=== PATIENT | male | born 1960 | race Caucasian/White ===

== ENCOUNTER 2016-12-08 06:52 | Day surgery (SDC) | payer BC ==
[~2016-12-08] VITALS: Ht 170.2 cm; Wt 68.3 kg
[2016-12-08 08:55] VITALS: Ht 170.2 cm; Wt 68.3 kg
[2016-12-08 09:26] VITALS: BP 143/85; PULSE 57; RESP 16
[2016-12-08 10:43] VITALS: BP 175/98; RESP 20
--- NOTE | 2016-12-08 14:56 | GILP ---
DATE OF PROCEDURE: NAME OF PROCEDURES: 1. Esophagogastroduodenoscopy and biopsy. 2. Colonoscopy and biopsy. SURGEON: Jasson Calix MD PREOPERATIVE DIAGNOSES: 1. Gastroesophageal reflux disease. 2. Screening colonoscopy. POSTOPERATIVE DIAGNOSES: 1. Hiatal hernia. 2. Reflux esophagitis with erosions at the lower end. 3. Gastritis with erosions. 4. Gastric mucosal biopsies were taken for Helicobacter pylori test. 5. Colonoscopy all the way to the cecum. 6. Poor prep, making the exam suboptimal. 7. Right colon polyp was removed using the biopsy forceps. 8. Internal hemorrhoids. INDICATION FOR THE PROCEDURE: Mr. Ann Canada is a 56-year-old male patient who had chronic hea rtburn, not responding to therapy. The patient also needed screening colonoscopy. The procedures and possible complications were well explained to the patient. The patient understoo d and consented to the procedure. DESCRIPTION OF PROCEDURE: Under the influence of anesthesia, the gastroscope was carefully introduc ed into the esophagus and under direct vision it was advanced to the stomach and through the pylorus , into the duodenal bulb and descending duodenum. FINDINGS: ESOPHAGUS: The patient had a hiatal hernia, with reflux esophagitis and erosions at the lower end. STOMACH: The patient had gastritis. Gastric mucosal biopsies were taken for H. pylori test. DUODENUM: Normal. The colonoscope was carefully introduced in the rectum and under direct vision it was advanced all t he way to the cecum. FINDINGS: The patient had a poor prep, making the exam suboptimal. The patient had a small right c olon polyp and it was removed using the biopsy forceps. He had internal hemorrhoids. He tolerated the procedures very well and there was no complication from the procedures. At the end of the procedures, he was awake with stable vital signs and he was discharged home to the care of h is family. IMPRESSION: Please see postoperative diagnoses. PLAN: 1. Nexium 24 HR p.o. q.a.m. 2. Await H. pylori test report. 3. Await histopathology report on the colon polyp. 4. Because of the poor prep and suboptimal nature of the examination, would recommend a repeat colo noscopy with better preparation in 2 years. Dictated By: JASSON SANCHEZ/BARBY Conf#: [id number] DID#: [id number]
== END 2016-12-08 12:27 | disposition home or self-care (01) ==
LOC: GIL 06:52
PROVIDERS: ATTEND Internal Medicine Gastroenterology
DX: Z12.11 Encounter for screening for malignant neoplasm of colon (principal); K44.9 Diaphragmatic hernia without obstruction or gangrene; K21.0 Gastro-esophageal reflux disease with esophagitis; K29.60 Other gastritis without bleeding; K63.5 Polyp of colon; K64.8 Other hemorrhoids
CPT/HCPCS: 43239; 45380; 87081; 88305; Z7610

== ENCOUNTER 2019-03-28 13:53 | Emergency (ER) | payer BC ==
[~2019-03-28] VITALS: Ht 167.6 cm; Wt 75.3 kg
[2019-03-28 14:01] VITALS: Ht 167.6 cm; Wt 75.3 kg
[2019-03-28] MEDS ORDERED: HYDROCODONE/APAP (5/325) TAB PO ONE (14:30)
[2019-03-28] MEDS ORDERED: DIPHTH/TET/ACEL PERTUSS (ADULT) 0.5 ML VIAL IM* ONE (14:30)
--- NOTE | 2019-03-28 14:39 | ERD ---
ER Documentation Chief Complaint Chief Complaint FINGER LACERATION, 4 NAILS GOT RIPPED OFF HPI 58-year-old male presents with lacerations to his left index, middle and ring finger as well as his pinky finger while trying to fix a fan today. Tetanus is not up-to-date. Denies restricted range of motion or weakness. Denies additional injury other than his fingertips on his left hand. He is right-hand dominant. ROS All systems reviewed and are negative except as per history of present illness. Medications Home Meds Active Scripts Hydrocodone/Acetaminophen ([place] 5-325 Tablet) 1 Each Tablet, 1 TAB PO Q6H PRN for PAIN, #7 TAB Prov:KYLIE RUSSELL MD 03/28/19 Cephalexin* (Keflex*) 500 Mg Capsule, 500 MG PO QID for 7 Days, CAP Prov:KYLIE RUSSELL MD 03/28/19 Reported Medications [none] No Conflict Check 12/08/16 Allergies Allergies: Coded Allergies: No Known Allergy (Unverified , 12/08/16) PMhx/Soc History of Surgery: Yes (appendectomy ) Anesthesia Reaction: No Hx Neurological Disorder: No Hx Respiratory Disorders: No Hx Cardiac Disorders: No Hx Psychiatric Problems: No Hx Miscellaneous Medical Probl: No Hx Alcohol Use: No Hx Substance Use: No Hx Tobacco Use: Yes (1 pack a day) Smoking Status: Never smoker FmHx Family History: No diabetes, No coronary disease, No other Physical Exam Vitals Vital Signs Date Temp Pulse Resp B/P (MAP) Pulse Ox O2 O2 Flow FiO2 Time Delivery Rate 03/28/19 98.2 79 18 142/84 95 Room Air 15:48 (103) 03/28/19 87 19 170/87 97 14:01 (114) Physical Exam Const: No acute distress Head: Atraumatic Eyes: Normal Conjunctiva ENT: Normal External Ears, Nose and Mouth. Neck: Full range of motion. No meningismus. Resp: Clear to auscultation bilaterally Cardio: Regular rate and rhythm, no murmurs Abd: Soft, non tender, non distended. Normal bowel sounds Skin: No petechiae or rashes Back: No midline or flank tenderness Ext: No cyanosis, or edema. Irregular stellate laceration to the left index finger at the tip involving the nail. Left middle finger shows approximately 1 cm laceration through the tip through the lateral aspect of the nail. Left ringer finger shows a similar 1 cm laceration of the tip through the nail. There is a superficial laceration to the tip of the nail of the left pinky finger. No restricted range of motion or deficits are appreciated tendon involvement. No involvement of the PIP or DIP joints. Neur: Awake and alert Psych: Normal Mood and Affect Results 24 hrs Current Medications Medications Dose Sig/Sindy Start Time Status Last (Trade) Ordered Route PRN Stop Time Admin Dose Reason Admin Diphtheria/ 0.5 ml ONCE ONCE 03/28/19 DC 03/28/19 Tetanus/Acell IM* 14:30 14:43 Pertussis 03/28/19 14:31 (Adacel) 1 tab ONCE ONCE 03/28/19 DC 03/28/19 Acetaminophen PO 14:30 14:42 / 03/28/19 14:31 Hydrocodone Bitart ([place] (5/325)) Procedures/MDM Wound was copiously irrigated with saline and Betadine. Patient given [place] for pain. Procedure note-after Betadine prep approximately 4 cc of lidocaine is used to perform digital block on the index, middle finger and ring finger. Left index finger was sutured in interrupted fashion with 5 4-0 nylon sutures. Left middle finger was reapproximated at the tip with two 4-0 nylon and left ring finger was reapproximated with four 4-0 nylon sutures. Avulsions of the nail were reapproximated with sutures. Patient tolerated procedure well and wound was dressed. Patient counseled that may have deformities of the nail due to possible nail bed injury. X-ray left hand 3V interpreted by me: Scaphoid: Normal Bones: No fracture Joints: No dislocation Foreign body: None impression-normal left hand x-ray Wounds were cleansed and dressed patient was placed in the left middle and ring finger metal splint was neurovascular intact after splint. Patient was discharged home with recommendations for 2-day wound check in 7 days suture removal. He was given Keflex and a short course of [place] for acute pain less than 5-day supply. Cures review negative. There are no signs of tendon Laceration, ischemia, deficits or current infection. The patient was stable with no new complaints during the ER course. Clinically, there is no current evidence to suggest meningitis, sepsis, acute abdomen, pneumonia, stroke, acute coronary syndrome, pulmonary embolism, aortic dissection or any other emergent condition appearing to require further evaluation or hospitalization. Patient counseled regarding my diagnostic impression and care plan. Prior to discharge all questions answered. Pt agrees with treatment plan and understands strict return precautions. Pt is instructed to follow up with primary care provider within 24-48 hours. Precautionary instructions provided including instructions to return to the ER if not improving or for any worsening or changing symptoms or concerns. Disclaimer: Inadvertent spelling and grammatical errors are likely due to EHR/dictation software use and do not reflect on the overall quality of patient care. Also, please note that the electronic time recorded on this note does not necessarily reflect the actual time of the patient encounter. Departure Diagnosis: Primary Impression: Laceration Condition: Stable KYLIE RUSSELL MD March 28, 2019 14:39
[2019-03-28] MEDS ORDERED: HYDR-4011 PO (15:10)
[2019-03-28] MEDS ORDERED: CEPH-443 PO (15:10)
[2019-03-28 15:48] VITALS: BP 142/84; PULSE 79; RESP 18
== END 2019-03-28 15:53 | disposition home or self-care (01) ==
LOC: FTE 13:53
DX: S61.311A Laceration without foreign body of left index finger with damage to nail, initial encounter (principal); S61.313A Laceration without foreign body of left middle finger with damage to nail, initial encounter; S61.315A Laceration without foreign body of left ring finger with damage to nail, initial encounter; S61.317A Laceration without foreign body of left little finger with damage to nail, initial encounter; W29.2XXA Contact with other powered household machinery, initial encounter; Y92.9 Unspecified place or not applicable; Z23 Encounter for immunization; Z87.891 Personal history of nicotine dependence
CPT/HCPCS: 12001; 73130; 90715; Z7610; 90471

== ENCOUNTER 2019-03-30 11:32 | Emergency (ER) | payer BC ==
[~2019-03-30] VITALS: Wt 78.0 kg
[~2019-03-30 11:32] MED LIST: CEPH-443 PO; HYDR-4011 PO
[2019-03-30 11:42] VITALS: BP 157/94; PULSE 71; RESP 18
--- NOTE | 2019-03-30 13:12 | ERD ---
ER Documentation Chief Complaint Chief Complaint left hand wound check HPI Patient is 58-year-old male presenting for wound check to left hand. For an injury that happened on March 28, patient was seen in the ER and received sutures. Patient states he is in no new pain and still has full function of his hand. Patient was just advised that he needed to follow-up in 2 days for wound check. Patient denies any fever chills body ache or worsening pain in the extremity. Patient states has been on antibiotics and has been compliant with his medication. ROS All systems reviewed and are negative except as per history of present illness. Medications Home Meds Active Scripts Hydrocodone/Acetaminophen ([place] 5-325 Tablet) 1 Each Tablet, 1 TAB PO Q6H PRN for PAIN, #7 TAB Prov:KYLIE RUSSELL MD 03/28/19 Cephalexin* (Keflex*) 500 Mg Capsule, 500 MG PO QID for 7 Days, CAP Prov:KYLIE RUSSELL MD 03/28/19 Reported Medications [none] No Conflict Check 12/08/16 Allergies Allergies: Coded Allergies: No Known Allergy (Unverified , 12/08/16) PMhx/Soc Medical and Surgical Hx: pt denies Medical Hx, pt denies Surgical Hx History of Surgery: Yes (appendectomy ) Anesthesia Reaction: No Hx Neurological Disorder: No Hx Respiratory Disorders: No Hx Cardiac Disorders: No Hx Psychiatric Problems: No Hx Miscellaneous Medical Probl: No Hx Alcohol Use: No Hx Substance Use: No Hx Tobacco Use: Yes (1 pack a day) Smoking Status: Never smoker FmHx Family History: No diabetes, No coronary disease, No other Physical Exam Vitals Vital Signs Date Temp Pulse Resp B/P (MAP) Pulse Ox O2 O2 Flow FiO2 Time Delivery Rate 03/30/19 97.6 71 18 157/94 99 11:42 (115) Physical Exam GENERAL: The patient is well-appearing, well-nourished, in no acute distress EXTREMITIES: Patient's sutures are still intact, no signs of infection, patient has good pulse motor sensation in his left hand. Pulses are equal bilateral There is no peripheral clubbing, cyanosis or edema. Patient's range of motion is nonrestrictive but is painful for the patient to move his fingers. Digits 1 through 5 are palpated with no pain. Patient pain is only at his fingertips. Grossly neurovascularly intact. SKIN: There is no apparent rash or petechiae. The skin is warm and dry. Procedures/MDM ED course: Wound inspected Patient's left hand was cleaned and rewrapped. Patient was advised he needs to follow-up for suture removal. Patient was advised that the date of suture removal is 5 to 7 days from the day they were placed in The patient was stable throughout the ED course. Medical decision making: Patient 58-year-old male presenting for wound check. Patient was seen in the ED on March 28, 2019 for an injury to the left hand. Patient had suture placement and digits 2 through 5 on the left hand. The sutures are still intact, there is no signs of active bleeds, no signs of infection patient has good pulse motor and sensation. There was no neurovascular deficits noted on examination. Patient states he has been compliant with his antibiotics and pain medication. Patient states the symptoms have been improving since his initial visit. At this time I have low suspicion for compartment syndrome, fracture, neurovascular injury, or infection. The patient was advised that he needs to follow-up in 5 to 7 days from the initial suture placement to have them removed. Patient was educated on wound care and was advised to come back if he experiences any worsening of pain or he is unable to move his hand or fingers. Patient was reminded the importance of taking his antibiotics. At this time the wounds are healing and the sutures are still in place. The patient's hands were re- bandaged and neurovascular exam was readministered the patient had no deficits. Patient is in agreement sent to the treatment plan and plans to follow-up for suture removals. Patient understands that if symptoms worsen he will return to the ER. Patient's questions were answered upon discharge no medications were prescribed because the patient still has medications for pain and is still taking his antibiotics. Prescription for home: Patient was advised to continue his hydrocodone and Keflex Discharge: At this time, patient is stable for discharge and outpatient management. I have instructed the patient to follow-up with his\her primary care physician in 1 to 2 days. I have discussed with the patient the possibility of needing to see a specialist for further work-up and imaging studies if symptoms persist. I have instructed the patient to promptly return to the ER for any new or worsening symptoms including increased pain, fever, nausea, vomiting, weakness or LOC. The patient and\or family expressed understanding of and agreement with this plan. All questions were answered. Home care instructions were provided. Disclaimer: Inadvertent spelling and grammatical errors are likely due to EHR\dictation software use and do not reflect on the overall quality of patient care. Also, please note that the electronic time recorded on the note does not necessarily reflect the actual time of the patient encounter. Departure Diagnosis: Primary Impression: Encounter for wound re-check Condition: JAYLA Guerra PA-C Mar 30, 2019 13:12
== END 2019-03-30 13:40 | disposition home or self-care (01) ==
LOC: FTE 11:32
DX: Z48.01 Encounter for change or removal of surgical wound dressing (principal); F17.210 Nicotine dependence, cigarettes, uncomplicated
CPT/HCPCS: 99281

== ENCOUNTER 2019-04-04 08:57 | Emergency (ER) | payer BC ==
[~2019-04-04] VITALS: Ht 167.6 cm; Wt 76.5 kg
[2019-04-04 09:00] VITALS: BP 163/90; PULSE 82; RESP 16; Ht 167.6 cm; Wt 76.5 kg
[2019-04-04] MEDS ORDERED: IBUPROFEN 800 MG TAB PO ONE (10:00)
--- NOTE | 2019-04-04 10:18 | ERD ---
ER Documentation Chief Complaint Chief Complaint pt is bib self for suture removal to left hand HPI 58-year-old male presenting with lacerations to the left second third and fourth distal digits. Patient cut himself 1 week ago in a fan. Patient has some mild pain. [id number]. He has normal range of motion of all his digits. He is up-to-date on his tetanus shot. Denies other medical problems. NKDA. Surgical history denies. Social history denies ROS All systems reviewed and are negative except as per history of present illness. Medications Home Meds Active Scripts Hydrocodone/Acetaminophen ([place] 5-325 Tablet) 1 Each Tablet, 1 TAB PO Q6H PRN for PAIN, #7 TAB Prov:KYLIE RUSSELL MD 03/28/19 Cephalexin* (Keflex*) 500 Mg Capsule, 500 MG PO QID for 7 Days, CAP Prov:KYLIE RUSSELL MD 03/28/19 Reported Medications [none] No Conflict Check 12/08/16 Allergies Allergies: Coded Allergies: No Known Allergy (Unverified , 12/08/16) PMhx/Soc History of Surgery: Yes (appendectomy ) Anesthesia Reaction: No Hx Neurological Disorder: No Hx Respiratory Disorders: No Hx Cardiac Disorders: No Hx Psychiatric Problems: No Hx Miscellaneous Medical Probl: No Hx Alcohol Use: No Hx Substance Use: No Hx Tobacco Use: Yes (1 pack a day) Smoking Status: Current some day smoker FmHx Family History: No diabetes, No coronary disease, No other Physical Exam Vitals Vital Signs Date Temp Pulse Resp B/P (MAP) Pulse Ox O2 O2 Flow FiO2 Time Delivery Rate 04/04/19 98.4 82 16 163/90 97 09:00 (114) Physical Exam GENERAL: The patient is well-appearing, well-nourished, in no acute distress CHEST: Clear to auscultation bilaterally. There are no rales, wheezes or rhonchi. HEART: Regular rate and rhythm. No murmurs, clicks, rubs or gallops. EXTREMITIES: Patient is able to nicely at the DIP and PIP joint of the left second third and fourth digits of the left hand. NEUROLOGIC: Neurovascularly intact to the second third and fourth digits of the left hand. Sensation intact SKIN: Healed lacerations noted to the distal tips of the second third and fourth digits. Results 24 hrs Current Medications Medications Dose Sig/Sindy Start Time Status Last (Trade) Ordered Route PRN Stop Time Admin Dose Reason Admin Ibuprofen 800 mg ONCE ONCE 04/04/19 DC 04/04/19 (Motrin) PO 10:00 04/04/19 09:48 10:01 Procedures/MDM ER course: Sutures removed removed without complication. MDM: 58-year-old male presenting with sutures to the left second third and fourth digits. Sutures were removed without complication. Patient is discharged with strict ER precautions and told to follow-up with primary care. Patient is recommended to clean with soap and water and remain dry. All questions answered at discharge Departure Diagnosis: Primary Impression: Encounter for removal of sutures Condition: Stable Patient Instructions: Suture Removal, No Complication Referrals: MAC CHANDRA (PCP) Additional Instructions: FOLLOW UP WITH YOUR PRIMARY CARE PHYSICIAN TOMORROW.Return to this facility if you are not improving as expected. GREYSON OLIVIER PA-C Apr 04, 2019 10:18
== END 2019-04-04 10:16 | disposition home or self-care (01) ==
LOC: FTE 08:57
DX: Z48.02 Encounter for removal of sutures (principal); F17.210 Nicotine dependence, cigarettes, uncomplicated
CPT/HCPCS: Z7502; Z7610; 99281

== ENCOUNTER 2019-04-04 16:42 | Emergency (ER) | payer BC ==
[~2019-04-04] VITALS: Wt 75.6 kg
[2019-04-04 17:01] VITALS: BP 134/87; PULSE 74; RESP 18
--- NOTE | 2019-04-04 22:20 | ERD ---
ER Documentation Chief Complaint Chief Complaint LEFT FINGER BLEEDING, HAD SUTURES REMOVED THIS MORNING, HPI 58-year-old male presents complaint of left finger bleeding. Patient had suture s removed earlier this morning and said that shortly after there was some bleeding noted. Patient denies any pain, numbness, discharge, edema, erythema, impaired range of motion. ROS All systems reviewed and are negative except as per history of present illness. Medications Home Meds Active Scripts Hydrocodone/Acetaminophen ([place] 5-325 Tablet) 1 Each Tablet, 1 TAB PO Q6H PRN for PAIN, #7 TAB Prov:KYLIE RUSSELL MD 03/28/19 Cephalexin* (Keflex*) 500 Mg Capsule, 500 MG PO QID for 7 Days, CAP Prov:KYLIE RUSSELL MD 03/28/19 Reported Medications [none] No Conflict Check 12/08/16 Allergies Allergies: Coded Allergies: No Known Allergy (Unverified , 12/08/16) PMhx/Soc History of Surgery: Yes (appendectomy ) Anesthesia Reaction: No Hx Neurological Disorder: No Hx Respiratory Disorders: No Hx Cardiac Disorders: No Hx Psychiatric Problems: No Hx Miscellaneous Medical Probl: No Hx Alcohol Use: No Hx Substance Use: No Hx Tobacco Use: Yes (1 pack a day) Smoking Status: Current every day smoker FmHx Family History: No diabetes, No coronary disease, No other Physical Exam Vitals Vital Signs Date Temp Pulse Resp B/P (MAP) Pulse Ox O2 O2 Flow FiO2 Time Delivery Rate 04/04/19 97.4 74 18 134/87 97 17:01 (103) Physical Exam Const: No acute distress Head: Atraumatic Eyes: Normal Conjunctiva ENT: Normal External Ears, Nose and Mouth. Neck: Full range of motion. No meningismus. Resp: Clear to auscultation bilaterally Cardio: Regular rate and rhythm, no murmurs Abd: Soft, non tender, non distended. Normal bowel sounds Skin: Closed lacerations noted to left fingers with no foreign bodies, retained stitches, or dehiscence noted. No signs of infection. Patient has full range of motion. There is no edema erythema. Sensation is intact. Back: No midline or flank tenderness Ext: No cyanosis, or edema Neur: Awake and alert Psych: Normal Mood and Affect Procedures/MDM MDM: There is no bleeding noted on exam. Patient was advised that there is no sign of infection wounds are healing appropriately. I have low suspicion for retained foreign body, infection, lymphangitis, tenosynovitis, or any other emergent condition. Patient discharged with strict ER precautions. Patient advised to follow up with PMD. All questions answered at discharge. Departure Diagnosis: Primary Impression: Encounter for wound re-check Condition: Stable Patient Instructions: Wound Care, Wound Check, Lac F/U (No Infection) Additional Instructions: FOLLOW UP WITH YOUR PRIMARY CARE PHYSICIAN TOMORROW.Return to this facility if you are not improving as expected. PORFIRIO ERICKSON Apr 04, 2019 22:20
== END 2019-04-04 18:50 | disposition home or self-care (01) ==
LOC: FTE 16:42
DX: Z48.01 Encounter for change or removal of surgical wound dressing (principal); F17.210 Nicotine dependence, cigarettes, uncomplicated
CPT/HCPCS: 99281